=== PATIENT | male | born 1965 | race Caucasian/White ===

== ENCOUNTER 2019-11-30 08:13 | Outpatient (CLI) | payer OTHER, SELFPAY ==
--- NOTE | 2019-11-30 08:16 | ECG_ITS ---
Measurements Intervals [place] Rate: 73 P: 57 ND: 181 QRS: 23 QRSD: 111 T: 55 QT: 368 QTc: 408 Interpretive Statements SINUS RHYTHM INTRAVENTRICULAR CONDUCTION DELAY BASELINE ARTIFACT- I, II, III, AVR, AVF BORDERLINE ECG Electronically Signed On 11-30-2019 8:28:31 CDT by Glynn Gonzales D.O.
== END 2019-11-30 08:14 | disposition home or self-care (01) ==
PROVIDERS: PCP Internal Medicine; Visit Provider Orthopaedic Surgery
DX: I10 Essential (primary) hypertension (principal); I45.9 Conduction disorder, unspecified
CPT/HCPCS: 93005

== ENCOUNTER 2019-12-18 10:12 | Emergency (ER) | payer OTHER, SELFPAY ==
[2019-12-18] VITALS (21 sets, daily range): BP systolic 103–125; BP diastolic 70–107; PULSE 85–134; RESP 16–34; TEMP 37.2; O2SAT 97
--- NOTE | ~2019-12-18 | XR_ITS ---
XR chest 1V portable DATE: 12/18/2019 11:03 INDICATION: Fever and cough TECHNIQUE: Portable AP chest on 12/18/2019 at 1102 hours COMPARISON: 02/08/2014 PA and lateral chest 02/11/2014 CT thorax FINDINGS: Heart size is within normal limits. No hilar or mediastinal enlargement is evident. No pulmonary infiltrate or consolidation, pleural effusion or pulmonary vascular congestion or pneumo thorax. IMPRESSION: No active cardiopulmonary disease or significant change since 02/08/2014 Reviewed, dictated and finalized at location B. IMPRESSION: No active cardiopulmonary disease or significant change since 2013
--- NOTE | ~2019-12-18 | XR_ITS ---
EXAMINATION: XR knee LT 2V DATE: 12/18/2019 11:03 INDICATION: Swollen and painful left knee TECHNIQUE: Portable AP and flexed lateral views of the left knee were obtained. COMPARISON: 08/05/2015 FINDINGS: Left total knee arthroplasty with patellar resurfacing which appears well seated and in near anatomic alignment. No fracture. No cortical erosions or periosteal reaction. No periprosthetic lucency to yi ggest loosening or infection. Large left knee joint effusion and/or synovitis. Small enthesophytes al rahul the anterior patella. IMPRESSION: 1. Left total knee arthroplasty with no acute osseous abnormality. 2. Nonspecific moderate-sized left knee joint effusion and/or synovitis. Consider diagnostic arthroce ntesis. Reviewed, dictated and finalized at location A. IMPRESSION: 1. Left total knee arthroplasty with no acute osseous abnormality. 2. Nonspecific moderate-sized left knee joint effusion and/or synovitis. Consid er diagnostic arthrocentesis.
--- NOTE | 2019-12-18 10:25 | ED.GENADULT ---
HPI - General Adult General Chief complaint: Unspecified <Debby Franco MD - Last Filed: 12/18/19 19:01> Stated complaint: need tested for virus, and can't walk on my knee <Debby Franco MD - Last Filed: 12/18/19 19:01> Time Seen by Provider: 12/18/19 10:23 <Debby Franco MD - Last Filed: 12/18/19 19:01> History of Present Illness HPI narrative: Patient presents per private car for fever of 103, left knee pain, shortness of breath. His left knee pain started 4 days ago, without injury. He gives the pain scale 11 out of 10. He is unable to bear weight. His fever of 103 started 4 days ago. He also has a cough shortness of breath and wheezing. He has COPD. He said his sputum is yellow. He has not previously had pneumonia. His last knee surgery was done here. The physician of record is Dr. Kaplan. <Debby Franco MD - Last Filed: 12/18/19 19:01> Related Data Home medications: Home Medications Medication Instructions Recorded Confirmed albuterol sulfate 1 puff INHALATION DIRECTED PRN 11/22/19 11/22/19 albuterol sulfate 2.5 mg INHALATION DAILY 11/22/19 11/22/19 bupropion HCl 150 mg PO DAILY 11/22/19 11/22/19 ergocalciferol (vitamin D2) 50,000 unit PO WEEKLY 11/22/19 11/22/19 lisinopril 10 mg PO DAILY 11/22/19 11/22/19 montelukast 10 mg PO DAILY 11/22/19 11/22/19 sertraline 100 mg PO DAILY 11/22/19 11/22/19 <Debby Franco MD - Last Filed: 12/18/19 19:01> Allergies/adverse reactions: Allergies Allergy/AdvReac Type Severity Reaction Status Date / Time peanut Allergy Intermediate Difficulty Verified 12/18/19 10:27 Breathing [place] Allergy Intermediate SINUS Uncoded 12/18/19 10:27 PROBLEMS <Debby Franco MD - Last Filed: 12/18/19 19:01> Review of Systems Review of Systems: Narrative: CONSTITUTIONAL: He has fever, chills, and sweats. EYES: Denies visual changes, redness, or discharge. ENT: Denies rhinorrhea, congestion, sore throat, or otalgia. CARDIOVASCULAR: Denies chest pain, palpitations, or edema. RESPIRATORY: He has cough and dyspnea. GASTROINTESTINAL: Denies abdominal pain, nausea, vomiting, or diarrhea. GENITOURINARY: Denies dysuria or hematuria. SKIN: Denies rash or itching. MUSCULOSKELETAL: He has severe left knee pain with swelling. NEUROLOGIC: Denies headache, numbness, or weakness. PSYCHIATRIC: Denies anxiety or depression. <Debby Franco MD - Last Filed: 12/18/19 19:01> [facility] Surgical History Surgical History: Surgical History History of left knee surgery <Debby Franco MD - Last Filed: 12/18/19 19:01> Family History Family History: Family History (Updated 01/10/16 @ 23:21 by DOCTOR UNKNOWN) Mother Patient's mother is in good health Family history of lung cancer Father Patient's father is in good health Sibling Patient's brother is in good health Other Family history of arthritis Family history of malignant neoplasm Hypertension <Debby Franco MD - Last Filed: 12/18/19 19:01> Social History Social History: Social History Smoking status: Current every day smoker Alcohol intake: current <Debby Franco MD - Last Filed: 12/18/19 19:01> Exam Narrative: Exam Narrative: GENERAL: Well-appearing, well-nourished, and in moderate acute distress. HEAD: Normocephalic, atraumatic. EYES: PERRLA and EOMI. ENT: Nares clear, no rhinorrhea or epistaxis. Mucous membranes moist. NECK: Supple. CHEST: Clear to auscultation. No respiratory distress. HEART: Regular rate and rhythm. No murmur heard. Normal peripheral pulses. ABDOMEN: Soft, nontender, nondistended, normal active bowel sounds. EXTREMITIES: Left knee has a well-healed scar, swollen, red, tender. SKIN: Warm, dry, no rash. NEURO: No focal deficits. Alert and oriented x3. PSYCH: Normal mood and affect. <Debby Franco MD - Last Filed: 12/18/19 19
[2019-12-18 10:43] LABS: Basophils Percent Auto 0.3 % (0.2-1.2); Eosinophils Percent Auto 0.1 % (0-4.4); Hematocrit 39.5 % (42.0-52.0); Hemoglobin 13.7 g/dL (14.0-18.0); Immature Granulocyte Absolute 0.06 K/mm3 (0.00-0.031); Immature Granulocyte Percent A 0.5 % (0-0.5); Lymphocytes Absolute Auto 0.46 K/mm3 (0.9-3.2); Mean Corpuscular HGB Conc 34.7 g/dl (32-36); Mean Corpuscular Hemoglobin 30.9 pg (26-34); Mean Platelet Volume 10.4 fl (7.4-10.4); Monocytes Absolute Auto 0.9 K/mm3 (0.1-0.6); Monocytes Percent Auto 7.4 % (2.6-8.5); Neutrophils Percent Auto 87.7 % (45.5-73.1); Platelet Count Result 145 k/mm3 (150-375); Red Blood Count 4.44 M/mm3 (4.6-6.20); Red Cell Distribution Width 12.5 % (11.5-14.5); White Blood Count 11.4 K/mm3 (4.5-10.0)
--- NOTE | 2019-12-18 10:48 | ECG_ITS ---
Measurements Intervals [place] Rate: 127 P: 55 PA: 165 QRS: 21 QRSD: 107 T: 33 QT: 280 QTc: 408 Interpretive Statements SINUS TACHYCARDIA BASELINE WANDER- I, AVR, AVL, AVF ABNORMAL ECG Electronically Signed On 12-18-2019 11:19:11 CDT by Glynn Gonzales D.O.
[2019-12-18 10:54] LABS: Alanine Aminotransferase 24 U/L (4-50); Albumin Level 3.8 g/dL (3.5-5.1); Alkaline Phosphatase 110 U/L (38-126); Aspartate Amino Transferase 22 U/L (17-59); Bilirubin,Total 1.3 mg/dL (0.2-1.3); Blood Urea Nitrogen 21 mg/dL (9-20); Calcium 8.5 mg/dL (8.4-10.2); Carbon Dioxide 22 mmol/L (22-30); Chloride 96 mmol/L (98-107); Estimated CRCL calculation 64 ml/min; Estimated Glomerular Filt Rate > 60; Glucose 131 mg/dL (75-110); Potassium 3.8 mmol/L (3.4-5.0); Sodium 128 mmol/L (137-145)
[2019-12-18 10:55] LABS: Lactic Acid Reflex 1.4 mmol/L (0.7-2.1)
[2019-12-18] MEDS: MORPHINE SULFATE 4 MG/ML INJ IV PUSH (10:57)
[2019-12-18] MEDS: SODIUM CHLORIDE 0.9% IV 1,000 ML 200 ML IV CONT (10:57)
[2019-12-18 13:12] LABS: Add Urine Microscopic? YES; Appearance Urine Clear (Clear); Bacteria Urine Trace /hpf; Bilirubin Urine Negative (Negative); Blood Urine 1+ (Negative); Color Urine Amber (Yellow); Glucose Urine UA Negative (Negative); Hyaline Casts Urine 15-19 /lpf; Ketones Urine Negative (Negative); Leukocyte Esterase Ur Negative LEU/UL (Negative); Mucus Urine Moderate /lpf; Nitrate Urine Negative (Negative); Protein Urine 2+ mg/dL (Negative); Specific Grav Ur 1.025 (1.001-1.035); Squamous Epithelial Cell Urine Rare /hpf (Few)
[2019-12-18 13:44] LABS: Appearance Synovial Fluid Cloudy (Clear); Color Synovial Fluid Brown (Colorless); Lymphocytes Synovial Fluid 6 %; Monocytes Synovial Fluid 4 %; Neutrophils Synovial Fluid 90 % (0-25); RBC Synovial Fluid 0 /uL (0-0); Source Synovial Fluid Synovial fluid
[2019-12-18 13:52] LABS: Crystals Synovial Fluid Few Cppd (None Seen)
[2019-12-18 20:03] LABS: SARS-CoV-2 RNA PCR Negative
[2019-12-20 03:16] LABS: Glucose Synovial Fluid <10 mg/dL
== END 2019-12-18 19:35 | disposition short-term general hospital (02) ==
PROVIDERS: Emergency Medicine Emergency Medical Services; Emergency Provider Emergency Medicine; PCP Internal Medicine
DX: M25.462 Effusion, left knee (principal); R50.9 Fever, unspecified; E87.2 Acidosis; E87.1 Hypo-osmolality and hyponatremia; M00.9 Pyogenic arthritis, unspecified; J44.9 Chronic obstructive pulmonary disease, unspecified; D72.829 Elevated white blood cell count, unspecified; R00.0 Tachycardia, unspecified; Z20.828 Contact with and (suspected) exposure to other viral communicable diseases; Z96.652 Presence of left artificial knee joint; F17.200 Nicotine dependence, unspecified, uncomplicated
CPT/HCPCS: 20610; 36415; 71045; 73560; 80053; 81001; 82945; 83605; 84157; 85025; 87040; 87070; 87075; 87077; 87086; 87186; 87205; 87635; 88108; 89051; 89060; 93005; 96361; 96365; 96367; 96375; 99291; C9803; J2270; J2543; J3370; J7030; U0003

== ENCOUNTER 2020-01-14 10:17 | Emergency (ER) | payer OTHER, SELFPAY ==
--- NOTE | ~2020-01-14 | XR_ITS ---
EXAMINATION: XR chest 1V portable EXAM DATE: 01/14/2020 10:50 INDICATION: PICC line evaluation, clogged. TECHNIQUE: Portable AP frontal chest x-ray was obtained. Comparison is made to prior examination from 12/18/2019. FINDINGS: PICC line tip suspected to be identified, pointing toward the right lateral wall of the SVC at the brachiocephalic junction. If tip is against the wall, it may prevent aspiration, clinical cor relation. The lungs are clear. There are no pleural effusions. The cardiomediastinal silhouette is within nor mal limits. There is no pneumothorax suspected. The bones and soft tissues are unremarkable. IMPRESSION: PICC line tip overlying SVC but oriented horizontally, tip could be against the SVC wall. Reviewed, dictated and finalized at location A.
[2020-01-14 10:27] VITALS: BP 148/108; PULSE 109; RESP 18; TEMP 36.3; O2SAT 100
--- NOTE | 2020-01-14 11:08 | ED.GENADULT ---
HPI - General Adult General Chief complaint: Unspecified Stated complaint: clogged picc line Time Seen by Provider: 01/14/20 10:28 Source: patient Mode of arrival: ambulatory Limitations: no limitations History of Present Illness HPI narrative: Patient presents for evaluation of clogged PICC line which she has had for approximately 1 month to deliver himself ampicillin every 6 hours under the orders of Dr. Bryant and Dr. Kirby after having a left knee infection. Patient states that his knee has continued to improve and he denies any increase swelling erythema pain or fevers. Patient states that he last gave himself an administration of ampicillin is running at approximately 3am he states at that time he was able to get around to flush however prior to arrival he was not. Patient denies any other symptoms or concerns. Related Data Home Medications Medication Instructions Recorded Confirmed albuterol sulfate 1 puff INHALATION DIRECTED PRN 11/22/19 11/22/19 albuterol sulfate 2.5 mg INHALATION DAILY 11/22/19 11/22/19 bupropion HCl 150 mg PO DAILY 11/22/19 11/22/19 mirtazapine mg 01/14/20 pantoprazole PO 01/14/20 Allergies Allergy/AdvReac Type Severity Reaction Status Date / Time peanut Allergy Intermediate Difficulty Verified 01/14/20 10:30 Breathing [place] Allergy Intermediate SINUS Uncoded 01/14/20 10:30 PROBLEMS Review of Systems Review of Systems: Narrative: CONSTITUTIONAL: Denies fever, chills, or sweats. EYES: Denies visual changes, redness, or discharge. ENT: Denies rhinorrhea, congestion, sore throat, or otalgia. CARDIOVASCULAR: Denies chest pain, palpitations, or edema. RESPIRATORY: Denies cough or dyspnea. GASTROINTESTINAL: Denies abdominal pain, nausea, vomiting, or diarrhea. GENITOURINARY: Denies dysuria or hematuria. SKIN: Denies rash or itching. MUSCULOSKELETAL: Denies back pain, joint pain, or myalgia. NEUROLOGIC: Denies headache, numbness, dizziness, or weakness. PSYCHIATRIC: Denies anxiety or depression. [facility] Past Medical History Medical History (Updated 01/14/20 @ 11:38 by Sam Gillespie PA-C) Bipolar 1 disorder COPD (chronic obstructive pulmonary disease) Depression Infection of left knee Surgical History Surgical History History of left knee surgery Family History Family History (Updated 01/10/16 @ 23:21 by DOCTOR UNKNOWN) Mother Patient's mother is in good health Family history of lung cancer Father Patient's father is in good health Sibling Patient's brother is in good health Other Family history of arthritis Family history of malignant neoplasm Hypertension Social History Social History Smoking status: Current every day smoker Alcohol intake: current Exam Narrative: Exam Narrative: GENERAL: Well-appearing, well-nourished, and in no acute distress. HEAD: Normocephalic, atraumatic. EYES: PERRLA and EOMI. ENT: Nares clear, no rhinorrhea or epistaxis. Mucous membranes moist. Oropharynx without tonsillar hypertrophy exudate or other lesions. Bilateral TMs pearly nixon nonbulging NECK: Supple. No adenopathy or masses. CHEST: Clear to auscultation. No respiratory distress. No wheezes rales or rhonchi HEART: Regular rate and rhythm. Cap refill intact to extremities ABDOMEN: Soft, nontender, nondistended, normal active bowel sounds. EXTREMITIES: Normal range of motion. PICC line noted to left arm without signs of infection or erythema to the site. No external signs of blockage. Left knee larger than right with healed surgical scar noted. There is no erythema, heat, drainage from the site. There is no tenderness with palpation. SKIN: Warm, dry, no rash. NEURO: No focal deficits. Alert and oriented x3. PSYCH: Normal mood and affect. Course Vital Signs Vital signs: Vital Signs Temperature 97.3 F L 01/14/20 10:27 Pulse Rate 109 H
--- NOTE | 2020-01-14 11:21 | PC.NURSE ---
RN at bedside to attempt to unclog picc line per ERP orders. RN able to flush, get blood return and flush again with 20ml of ns.
[2020-01-14 11:52] VITALS: BP 102/63; PULSE 83; RESP 18; TEMP 36.6; O2SAT 98
== END 2020-01-14 11:54 | disposition home or self-care (01) ==
PROVIDERS: Emergency Provider Emergency Medicine; PCP Internal Medicine
DX: T82.898A Other specified complication of vascular prosthetic devices, implants and grafts, initial encounter (principal); M00.9 Pyogenic arthritis, unspecified; F31.9 Bipolar disorder, unspecified; J44.9 Chronic obstructive pulmonary disease, unspecified; F17.200 Nicotine dependence, unspecified, uncomplicated
CPT/HCPCS: 71045; 99283

== ENCOUNTER 2020-01-15 10:59 | Emergency (ER) | payer OTHER, SELFPAY ==
[2020-01-15 11:10] VITALS: BP 108/57; PULSE 100; RESP 18; TEMP 36.8; O2SAT 100
--- NOTE | 2020-01-15 12:04 | PC.NURSE ---
Pts PICC line flushed with normal saline and injection cap changed. Flushes easily but gives no blood return at this time.
[2020-01-15] MEDS: ALTEPLASE 2 MG VIAL (CATHFLO) IV PUSH (13:14)
--- NOTE | 2020-01-15 14:18 | ED.GENADULT ---
HPI - General Adult General Chief complaint: Unspecified Stated complaint: CLOGGED PICC LINE Time Seen by Provider: 01/15/20 11:15 Source: patient Mode of arrival: ambulatory Limitations: no limitations History of Present Illness HPI narrative: Patient presents for management of occluded PICC line. Patient was seen in the ER yesterday for occluded PICC line and it was able to be flushed and aspirated with a saline syringe. Patient states that he went to administer his ampicillin prior to arrival and noticed that he was unable to flush or aspirate the line. So he came to the emergency department. Patient denies any other symptoms or concerns. He has not contacted his PICC nurse. Patient uses a PICC line to administer ampicillin for prior left knee infection. Patient states that his left knee pain and symptoms have resolved and he is hoping to have the PICC line removed on Wednesday. Related Data Home Medications Medication Instructions Recorded Confirmed albuterol sulfate 1 puff INHALATION DIRECTED PRN 11/22/19 11/22/19 albuterol sulfate 2.5 mg INHALATION DAILY 11/22/19 11/22/19 bupropion HCl 150 mg PO DAILY 11/22/19 11/22/19 mirtazapine mg 01/14/20 pantoprazole PO 01/14/20 Allergies Allergy/AdvReac Type Severity Reaction Status Date / Time peanut Allergy Intermediate Difficulty Verified 01/14/20 10:30 Breathing [place] Allergy Intermediate SINUS Uncoded 01/14/20 10:30 PROBLEMS Review of Systems Review of Systems: Narrative: CONSTITUTIONAL: Denies fever, chills, or sweats. EYES: Denies visual changes, redness, or discharge. ENT: Denies rhinorrhea, congestion, sore throat, or otalgia. CARDIOVASCULAR: Denies chest pain, palpitations, or edema. RESPIRATORY: Denies cough or dyspnea. GASTROINTESTINAL: Denies abdominal pain, nausea, vomiting, or diarrhea. GENITOURINARY: Denies dysuria or hematuria. SKIN: Denies rash or itching. MUSCULOSKELETAL: Denies back pain, joint pain, or myalgia. NEUROLOGIC: Denies headache, numbness, dizziness, or weakness. PSYCHIATRIC: Denies anxiety or depression. [facility] Past Medical History Medical History (Updated 01/15/20 @ 13:23 by Sam Gillespie PA-C) Bipolar 1 disorder COPD (chronic obstructive pulmonary disease) Depression Infection of left knee Surgical History Surgical History History of left knee surgery Family History Family History (Updated 01/10/16 @ 23:21 by DOCTOR UNKNOWN) Mother Patient's mother is in good health Family history of lung cancer Father Patient's father is in good health Sibling Patient's brother is in good health Other Family history of arthritis Family history of malignant neoplasm Hypertension Social History Social History Smoking status: Current every day smoker Alcohol intake: current Exam Narrative: Exam Narrative: GENERAL: Well-appearing, well-nourished, and in no acute distress. HEAD: Normocephalic, atraumatic. EYES: PERRLA and EOMI. ENT: Nares clear, no rhinorrhea or epistaxis. Mucous membranes moist. Oropharynx without tonsillar hypertrophy exudate or other lesions. Bilateral TMs pearly nixon nonbulging NECK: Supple. No adenopathy or masses. CHEST: Clear to auscultation. No respiratory distress. No wheezes rales or rhonchi HEART: Regular rate and rhythm. . EXTREMITIES: Normal range of motion. No edema. Click noted to left arm. There are no signs of erythema infection or other obvious signs of inclusion at the site. SKIN: Warm, dry, no rash. NEURO: No focal deficits. Alert and oriented x3. PSYCH: Normal mood and affect. Course Vital Signs Vital signs: Vital Signs Temperature 98.2 F 01/15/20 11:10 Pulse Rate 100 01/15/20 11:10 Respiratory Rate 18 01/15/20 11:10 Blood Pressure 108/57 L 01/15/20 11:10 Pulse Oximetry 100 01/15/20 11:10 Temperature 98.2 F 01/15/20 14
--- NOTE | 2020-01-15 14:36 | PC.NURSE ---
cathlo withdrawn from line and successful blood return noted. Line flushed and locked with normal saline.
[2020-01-15 14:37] VITALS: BP 96/55; PULSE 74; RESP 16; TEMP 36.8; O2SAT 100
== END 2020-01-15 14:38 | disposition home or self-care (01) ==
PROVIDERS: Emergency Provider Emergency Medicine; PCP Internal Medicine
DX: T82.898A Other specified complication of vascular prosthetic devices, implants and grafts, initial encounter (principal); M00.9 Pyogenic arthritis, unspecified; F31.9 Bipolar disorder, unspecified; J44.9 Chronic obstructive pulmonary disease, unspecified; F17.200 Nicotine dependence, unspecified, uncomplicated
CPT/HCPCS: 96374; 99284; J2997

== ENCOUNTER 2020-09-06 09:04 | Outpatient (CLI) | payer OTHER, SELFPAY ==
--- NOTE | 2020-09-25 20:45 | WPDHOMESLEEP ---
Sleep Study - Home Unattended Date of Study: 09/06/20 Ordering Provider: Wojciech Hansen MD Interpreting Provider: Rula Valdivia MD Home Sleep Study Type: Apnea Link Air Height: 1.78 m Weight: 97.976 kg Body Mass Index: 30.9 Neck Circumference (inches): 17.25 [place]: 17 Reason for Sleep Study Hypersomnolence Sleep History Patrick Munson is a 55-year-old man with C COPD and poor sleep. He lost his daughter in March of 2019. He currently takes medicine to help get to sleep. He has difficulty falling asleep, he wakes up throughout the night and he has excessive daytime sleepiness. He occasionally snores and occasionally is loud enough that others complain about it. He occasionally awakens at night with heartburn, belching or coughing. He frequently awakens from sleep feeling short of breath. He frequently has trouble sleeping when he has a cold. He frequently gasps for breath at night. He constantly has breathing problems at night observed by others. He rarely sweats excessively at night. He occasionally notices his heart pounding or beating irregularly night. He frequently falls asleep during the day, occasionally involuntarily, rarely while driving. He does not have loss of muscle tone was strong emotion. He frequently has daytime difficulties due to his excessive sleepiness. He occasionally feels paralyzed on waking or falling asleep. He constantly has vivid dreamlike scenes upon awakening or falling asleep. He constantly feels afraid to go to sleep and he constantly has nightmares. He frequently remembers his dreams. He occasionally has racing thoughts. He always feel sad, depressed and anxious. He frequently has muscular tension and notices parts of his body jerking at night. He always kicks at night. He frequently has crawling and aching feelings in his legs and leg pain during. He rarely has morning jaw pain he occasionally grinds his teeth at night. He constantly is bothered by pain during the day, frequently is awakened by pain at night. He constantly wakes up feeling stiff in the morning frequently with sore achy muscles. He constantly wakes up with spine pain. He has fatigue, memory problems, concentration difficulties. He takes antacids regularly. Normal bedtime is between 10 and 11:00 p.m. taking anywhere between 2 and 5 hours to fall asleep. He typically wakes twice at night for 30 minutes to an hour. While awake he goes to urinate. He wakes the morning between 6 and 7:00 a.m.. We can schedule is the same. He is disabled. He takes naps. Short naps are not refreshing. He is drowsy in the morning for an hour. He feels better in the evening compared other times of day. Habits: Tobacco half pack per day. No caffeine, alcohol or recreational drugs. [facility] Past Medical History Medical History Bipolar 1 disorder COPD (chronic obstructive pulmonary disease) Depression Infection of left knee Surgical History Surgical History History of left knee surgery Family History Family History Mother Patient's mother is in good health Family history of lung cancer Father Patient's father is in good health Sibling Patient's brother is in good health Other Family history of arthritis Family history of malignant neoplasm Hypertension Social History Social History Smoking status: Current every day smoker Alcohol intake: current Medications Home Medications Medication Instructions Recorded Confirmed Type albuterol sulfate 1 puff INHALATION DIRECTED PRN 11/22/19 11/22/19 History albuterol sulfate 2.5 mg INHALATION DAILY 11/22/19 11/22/19 History bupropion HCl 150 mg PO DAILY 11/22/19 11/22/19 History mirtazapine mg 01/14/20 History pantoprazole PO 01/13
[2020-09-25 20:55] VITALS: BMI 30.9
== END 2020-09-06 09:05 | disposition home or self-care (01) ==
LOC: ANHCSM 09:04
PROVIDERS: PCP Internal Medicine; Visit Provider Internal Medicine Pulmonary Disease
DX: G47.10 Hypersomnia, unspecified (principal); G47.33 Obstructive sleep apnea (adult) (pediatric)
CPT/HCPCS: 95806

== ENCOUNTER 2020-10-28 11:59 | Emergency (ER) | payer OTHER, SELFPAY ==
--- NOTE | ~2020-10-28 | XR_ITS ---
EXAMINATION: XR elbow RT min 3V EXAM DATE: 10/28/2020 12:54 INDICATION: Pain R elbow for 5 months. No injury reported at this time. TECHNIQUE: Right elbow frontal, lateral with flexion, and oblique projections obtained and reviewed. There is no prior study for comparison. FINDINGS: Small ossification just lateral to the lateral epicondyles, could be sequela from old avuls ion injury, or less likely small joint body. This finding has been indicated, marked on the examinati on for review, clinical correlation. The joint spaces are uniform. No erosions or bony productive rey nges. No joint effusion. Small ossification along the olecranon, probably enthesopathy. There are no acute fractures identified. No radiopaque foreign bodies identified. IMPRESSION: Chronic findings as above. Reviewed, dictated and finalized at location A. IMPRESSION: Chronic findings as above.
[2020-10-28 12:01] VITALS: BP 129/70; PULSE 96; RESP 17; TEMP 36.4; O2SAT 97
--- NOTE | 2020-10-28 12:31 | ED.UPPEXIN ---
HPI - Extremity Injury (Upper) General Chief Complaint: Extremity Injury, Upper Stated Complaint: r elbow pain for 5 months Time Seen by Provider: 10/28/20 12:24 Source: RN notes reviewed History of Present Illness HPI narrative: Patient presents emergency room from home for right elbow pain. Patient states symptoms have been ongoing for the past 5 months since he had shoulder surgery states has been worse over the past week he denies any trauma or injury states pain is worse with full extension of the elbow the pain is located with point tenderness in the elbow he denies taking pain medication today denies any fevers or chills numbness or tingling in the extremities or any other symptoms Related Data Home Medications Medication Instructions Recorded Confirmed albuterol sulfate 1 puff INHALATION DIRECTED PRN 11/22/19 11/22/19 albuterol sulfate 2.5 mg INHALATION DAILY 11/22/19 11/22/19 bupropion HCl 150 mg PO DAILY 11/22/19 11/22/19 mirtazapine mg 01/14/20 pantoprazole PO 01/14/20 Allergies Allergy/AdvReac Type Severity Reaction Status Date / Time peanut Allergy Severe Difficulty Verified 10/28/20 12:36 Breathing [place] Allergy Intermediate SINUS Uncoded 10/28/20 12:04 PROBLEMS Review of Systems Review of Systems: Narrative: Gen.: Denies fevers or chills Musculoskeletal: See HPI Neuro: Denies numbness, tingling, weakness Skin: Denies rash Endo: Denies DM PMFSH Past Medical History Medical History Bipolar 1 disorder COPD (chronic obstructive pulmonary disease) Depression Infection of left knee Surgical History Surgical History History of left knee surgery Family History Family History Mother Patient's mother is in good health Family history of lung cancer Father Patient's father is in good health Sibling Patient's brother is in good health Other Family history of arthritis Family history of malignant neoplasm Hypertension Social History Social History Smoking status: Current every day smoker Alcohol intake: current Gender identity (if verbalized by the patient): Male Exam Narrative: Exam Narrative: APPEARANCE: No acute distress, nontoxic, resting in bed Eyes: EOMI HEENT: Normocephalic, atraumatic, RESPIRATORY: No respiratory distress MUSCULOSKELETAl: Tender to palpation over the right lateral epicondyle no tenderness over the medial epicondyle or the left and on process no swelling or ecchymosis no overlying erythema or swelling pain with full extension of the elbow no tenderness of the right shoulder or wrist radial pulse 2+ neurovascular intact NEURO: Awake and alert. Following commands, speech normal, no focal deficits SKIN:: Warm, dry. Normal Color no rash or lesions Course Course Emergency Course: Following x-ray suspect avulsion injury as the patient has no open wounds he is noted no trauma to the area patient has been followed by Dr. Jha for orthopedics for his shoulder in past and will follow Dr. Jha as outpatient Discussed with patient results of workup and diagnosis. Discussed need for follow-up with primary care, proper use of medication, and reasons to return to the emergency department. Patient understands and agrees to current treatment plan Vital Signs Vital signs: Vital Signs Temperature 97.5 F L 10/28/20 12:01 Pulse Rate 96 10/28/20 12:01 Respiratory Rate 17 10/28/20 12:01 Blood Pressure 129/70 10/28/20 12:01 Pulse Oximetry 97 10/28/20 12:01 Temperature 97.5 F L 10/28/20 12:01 Pulse Rate 96 10/28/20 12:01 Respiratory Rate 17 10/28/20 12:01 Blood Pressure 129/70 10/28/20 12:01 Pulse Oximetry 97 10/28/20 12:01 MDM - Extremity Injury (Upper) Imaging Data Radiologist's jadyn
[2020-10-28] MEDS: IBUPROFEN 600 MG TABLET PO (12:34)
[2020-10-28 13:26] VITALS: BP 132/78; PULSE 80; RESP 20; O2SAT 99
== END 2020-10-28 13:27 | disposition home or self-care (01) ==
PROVIDERS: Emergency Provider Emergency Medicine; PCP Internal Medicine
DX: G89.29 Other chronic pain (principal); M25.521 Pain in right elbow; F17.200 Nicotine dependence, unspecified, uncomplicated; J44.9 Chronic obstructive pulmonary disease, unspecified; F32.9 Major depressive disorder, single episode, unspecified
CPT/HCPCS: 73080; 99283; A9270

== ENCOUNTER 2020-11-01 16:28 | Inpatient (IN) | payer OTHER, SELFPAY ==
--- NOTE | ~2020-11-01 | XR_ITS ---
EXAMINATION: XR chest 1V portable INDICATION: Cough, shortness of breath, and fever TECHNIQUE: Portable AP chest at 1903 hours COMPARISON: 01/14/2020 FINDINGS: There are patchy airspace opacities throughout all lung zones superimposed on chronic retic ular opacities. There is no pleural effusion or pneumothorax. The cardiomediastinal silhouette is nor mal. Suture anchors are noted in the left humeral head. IMPRESSION: 1. Patchy airspace opacities superimposed on a background of chronic lung disease, consistent with pn eumonia versus atelectasis versus pulmonary edema. Reviewed, dictated and finalized at location A. IMPRESSION: 1. Patchy airspace opacities superimposed on a background of chronic lung disea se, consistent with pneumonia versus atelectasis versus pulmonary edema.
[2020-11-01 17:07] VITALS: BP 136/73; PULSE 131; RESP 18; TEMP 38.1; O2SAT 95
[2020-11-01 18:51] VITALS: BP 118/54; PULSE 128; RESP 20; O2SAT 93
[2020-11-01 19:01] LABS: Basophils Absolute Auto 0.1 K/mm3 (0.0-0.1); Basophils Percent Auto 0.5 % (0.2-1.2); Eosinophils Absolute Auto 0.1 K/mm3 (0-0.3); Eosinophils Percent Auto 0.3 % (0-4.4); Hematocrit 43.7 % (42.0-52.0); Hemoglobin 14.4 g/dL (14.0-18.0); Immature Granulocyte Absolute 0.17 K/mm3 (0.00-0.031); Immature Granulocyte Percent A 0.8 % (0-0.5); Lymphocytes Absolute Auto 1.15 K/mm3 (0.9-3.2); Lymphocytes Percent Auto 5.2 % (18.3-44.2); Mean Corpuscular Hemoglobin 30.1 pg (26-34); Mean Corpuscular Volume 91.2 fl (80-100); Monocytes Absolute Auto 1.3 K/mm3 (0.1-0.6); Monocytes Percent Auto 6.1 % (2.6-8.5); Neutrophils Absolute Auto 19.1 K/mm3 (1.3-6.7); Neutrophils Percent Auto 87.1 % (45.5-73.1); Platelet Count Result 258 k/mm3 (150-375); Red Blood Count 4.79 M/mm3 (4.6-6.20); Red Cell Distribution Width 13.2 % (11.5-14.5); White Blood Count 21.9 K/mm3 (4.5-10.0)
[2020-11-01] MEDS: LACTATED RINGERS 1,000 ML 999 ML IV CONT ×3 (19:05→20:54)
[2020-11-01 19:17] LABS: Alanine Aminotransferase 20 U/L (4-50); Albumin Level 4.1 g/dL (3.5-5.1); Alkaline Phosphatase 85 U/L (38-126); Anion Gap 9 mmol/L (8-16); Aspartate Amino Transferase 26 U/L (17-59); Bilirubin,Total 0.4 mg/dL (0.2-1.3); Blood Urea Nitrogen 24 mg/dL (9-20); Calcium 10.1 mg/dL (8.4-10.2); Carbon Dioxide 26 mmol/L (22-30); Chloride 99 mmol/L (98-107); Estimated CRCL calculation 72 ml/min; Estimated Glomerular Filt Rate > 60; Glucose 103 mg/dL (75-110); Potassium 3.4 mmol/L (3.4-5.0); Sodium 134 mmol/L (137-145)
[2020-11-01 19:26] LABS: Add Urine Microscopic? YES; Appearance Urine Clear (Clear); Bilirubin Urine Negative (Negative); Blood Urine 1+ (Negative); Color Urine Yellow (Yellow); Glucose Urine UA Negative (Negative); Ketones Urine Negative (Negative); Leukocyte Esterase Ur Negative LEU/UL (Negative); Mucus Urine Rare /lpf; Nitrate Urine Negative (Negative); Protein Urine 2+ mg/dL (Negative); RBC Urine 0-2 /hpf (0-2); Specific Grav Ur 1.024 (1.001-1.035); Squamous Epithelial Cell Urine Rare /hpf (Few); WBC Urine 0-3 /hpf
--- NOTE | 2020-11-01 20:23 | ED.URI ---
HPI - URI/Sore Throat General Chief Complaint: Upper Respiratory Infection Stated Complaint: fever since yesterday Time Seen by Provider: 11/01/20 18:05 Source: patient Mode of arrival: ambulatory Limitations: no limitations History of Present Illness HPI Narrative: 55-year-old male History of COPD Has been twice vaccinated for Covid Complains of a 2-day history of fever, nonproductive cough, chills Patient tells me that last time he had a fever this high he had a knee joint infection however right now he does not have any pain or effusions in any of his joints Related Data Home Medications Medication Instructions Recorded Confirmed albuterol sulfate 1 puff INHALATION DIRECTED PRN 11/22/19 11/22/19 albuterol sulfate 2.5 mg INHALATION DAILY 11/22/19 11/22/19 bupropion HCl 150 mg PO DAILY 11/22/19 11/22/19 mirtazapine mg 01/14/20 pantoprazole PO 01/14/20 Allergies Allergy/AdvReac Type Severity Reaction Status Date / Time peanut Allergy Severe Difficulty Verified 11/01/20 18:03 Breathing [place] Allergy Intermediate SINUS Uncoded 11/01/20 18:03 PROBLEMS Review of Systems Review of Systems: All systems reviewed & are unremarkable except as noted in HPI and below Constitutional: Constitutional: Reports chills, Reports fatigue, Reports fever(s), Denies headache(s) and Reports weakness Eyes: Eyes: Reports no additional eye complaints and Denies change in vision ENT: Denies headache(s) and Denies sore throat Cardiovascular: Cardiovascular: Denies chest pain and Denies dyspnea Respiratory: Respiratory: Reports cough and Reports dyspnea Gastrointestinal: Gastrointestinal: Denies abdominal pain, Denies diarrhea, Reports nausea and Denies vomiting Genitourinary: Genitourinary: Denies dysuria and Denies urinary frequency Musculoskeletal: Musculoskeletal: Reports myalgias, Denies deformity, Denies arthralgias, Denies joint swelling and Denies numbness Integumentary/Breasts: Skin/Breast: Denies rash and Denies wounds Neurologic: Denies headache(s), Denies focal weakness and Denies numbness Psychiatric: Psychiatric: Reports no additional psychiatric complaints Endocrine: Endocrine: Reports no additional endocrine complaints and Reports fatigue Hematologic/Lymphatic: Hematologic/Lymphatic: Reports no additional hematologic/lymphatic complaints Allergic/Immunologic: Allergic/Immunologic: Reports no additional allergic/immunologic complaints [facility] Past Medical History Medical History Bipolar 1 disorder COPD (chronic obstructive pulmonary disease) Depression Infection of left knee Surgical History Surgical History History of left knee surgery Family History Family History Mother Patient's mother is in good health Family history of lung cancer Father Patient's father is in good health Sibling Patient's brother is in good health Other Family history of arthritis Family history of malignant neoplasm Hypertension Social History Social History Smoking status: Current every day smoker Alcohol intake: current Gender identity (if verbalized by the patient): Male Exam Const: General: cooperative, alert and ill appearing Orientation/consciousness: patient oriented x3 (alert) HENMT: Head: normal to inspection, normocephalic and atraumatic Ears: external ears normal General nose exam: no epistaxis Mouth: Yes Normal oral and palatal mucosa present Eyes: Conjunctivae: conjunctivae normal EOM: EOMs intact bilaterally Neck: Neck: normal visual inspection, supple and no JVD Resp: Effort & Inspection: normal respiratory effort and tachypneic Auscultation: crackles, no wheezes and other (BS =) Cardio: Rate: regular rate and tachycardic
[2020-11-01 20:44] VITALS: BP 134/75; PULSE 119; RESP 22; O2SAT 98
[2020-11-01] MEDS: ALBUTEROL SULFATE (*SP) AEROSOL 1 PUFF 4 PUFF INHALATION (20:57)
[2020-11-01 21:04] VITALS: PULSE 124; RESP 22
[2020-11-01 22:46] VITALS: BP 147/77; PULSE 112; RESP 24; O2SAT 95
--- NOTE | 2020-11-01 23:28 | ECG_ITS ---
Measurements Intervals [place] Rate: 118 P: 44 FL: 128 QRS: 12 QRSD: 103 T: 50 QT: 301 QTc: 423 Interpretive Statements SINUS TACHYCARDIA POSSIBLE LEFT ATRIAL ENLARGEMENT ABNORMAL ECG Electronically Signed On 11-02-2020 5:47:12 CDT by Glynn Gonzales D.O.
--- NOTE | 2020-11-01 23:50 | PM.IMHP ---
H&P: HPI History of Present Illness Date/Time: 11/01/20 23:20 Chief Complaint: Fever, cough Narrative: 55-year-old male with past medical history of COPD and continued tobacco use who presented to the ER with 2 days of fever cough and shortness of breath. Patient reports that his fever at home was greater than 102. His associated with chills, cough productive of yellow sputum, anorexia, and nausea and vomiting. His shortness of breath is not improved despite using his p.r.n. albuterol inhaler at home. He has been taking ibuprofen at home to help with the fever. Despite taking 600 mg of ibuprofen at home his temperature was still 100.6? when he arrived to the ER. He reports that he received both doses of the COVID-19 vaccine and. His 2nd vaccine was a little over a month ago. He denies any recent ill contacts. He lives with 2 friends to do not have any upper respiratory symptoms. He reports that his cough is productive of yellow sputum. He denies any lower extremity swelling, paroxysmal nocturnal dyspnea or orthopnea. He did have some nausea and vomiting when he arrived to the ER. However since that time he has been able to eat a sandwich without any further nausea or vomiting. He denies any chest pain. He has had a mild generalized headache. He has not had any loss of sense of taste or smell. He has noticed some discomfort in his left posterior ribs with inspiration and coughing. The patient reports that he has been on steroids for 2 days for tenosynovitis of his right elbow. He is supposed to be taking 20 mg of prednisone 3 times a day as for the next couple of days and then be titrating his dose down. Despite being on the steroids for the tenosynovitis he has had increased wheezing. He has tried using his nebulizer machine. Review of Systems Review of Systems: Narrative: 12 systems were reviewed with pertinent positives and negatives per HPI. Except as documented in the HPI, all other systems were reviewed and are negative. [facility] Past Medical History Medical History (Updated 11/02/20 @ 03:24 by Sachi Grove DO) Bipolar 1 disorder Continuous tobacco abuse COPD (chronic obstructive pulmonary disease) Depression Esophageal dilatation X4 most recent was performed at [facility] in [place] GERD (gastroesophageal reflux disease) Hyperlipidemia Infection of left knee Obstructive sleep apnea on CPAP (09/25/20) Surgical History Surgical History (Updated 11/02/20 @ 03:08 by Sachi Grove DO) H/O left wrist surgery H/O right wrist surgery History of arthroscopic surgery of shoulder (~05/2020) History of esophagogastroduodenoscopy (EGD) (~2019) History of left knee replacement Initial left knee replacement in 2018 he had subsequent infection of the knee replacement and had to have repeat knee replacement in 2020 History of partial thyroidectomy (10/2014) Left thyroidectomy due to multinodular goiter History of repair of anterior cruciate ligament of right knee History of tonsillectomy Status post open reduction with internal fixation of fracture Left ankle Family History Family History (Updated 11/02/20 @ 03:09 by Sachi Grove DO) Mother Lung cancer Father Heart attack Sibling Patient's brother is in good health Other Family history of malignant neoplasm Social History Social History (Updated 11/02/20 @ 03:14 by Sachi Grove DO) Social History: He is and lives with a couple of friends. He had 1 daughter who of a fentanyl overdose in 2019. He has smoked up to a pack of cigarettes per day since he was 14 years old. He is currently smoking about 5-6 cigarettes per day. He used to drink alcohol heavily and was drinking up to 3/5 of hard liquor a day on and off for 20 years. He quit drinking alcohol in 2019. He uses marijuana on occasion. 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
[2020-11-02 00:56] VITALS: BP 114/67; PULSE 109; RESP 24; TEMP 36.1; O2SAT 95; BMI 32.7
--- NOTE | 2020-11-02 01:14 | ADMGEN ---
This patient, Patirck Munson, was admitted to [facility] Surg Room 304-02. Patient/family oriented to hospital policies and general routines including ID bracelet, bed and alarms, visiting hours, pain management, procedures, bathroom and other care routines, personal items, smoking policy, room service/diet, and visiting hours. Information on how to activate the Rapid Response Team has been discussed. Patient/Family are encouraged to report perceived risks to care and to ask questions if they do not understand what they are told or what they should do.
[2020-11-02] MEDS: LACTATED RINGERS 1,000 ML 125 ML IV CONT (01:24)
[2020-11-02 03:00] VITALS: PULSE 88; O2SAT 93
[2020-11-02 04:00] VITALS: BP 103/57; PULSE 84; PULSE 89; RESP 20; TEMP 36.4; O2SAT 96
--- NOTE | 2020-11-02 04:20 | ECG_ITS ---
Measurements Intervals [place] Rate: 84 P: 59 MD: 184 QRS: 16 QRSD: 117 T: 63 QT: 368 QTc: 435 Interpretive Statements SINUS RHYTHM INTRAVENTRICULAR CONDUCTION DELAY BASELINE ARTIFACT- I, II, III, V1-V2, V4, V6 BORDERLINE ECG Electronically Signed On 11-02-2020 5:54:12 CDT by Glynn Gonzales D.O.
[2020-11-02 04:42] VITALS: O2SAT 94
[2020-11-02 08:00] VITALS: BP 109/69; PULSE 81; PULSE 82; PULSE 84; RESP 20; TEMP 35.6; O2SAT 98
[2020-11-02 08:28] LABS: Hematocrit 38.8 % (42.0-52.0); Hemoglobin 12.7 g/dL (14.0-18.0); Mean Corpuscular HGB Conc 32.7 g/dl (32-36); Mean Corpuscular Hemoglobin 29.8 pg (26-34); Mean Corpuscular Volume 91.1 fl (80-100); Mean Platelet Volume 9.7 fl (7.4-10.4); Platelet Count Result 227 k/mm3 (150-375); Red Blood Count 4.26 M/mm3 (4.6-6.20); Red Cell Distribution Width 13.1 % (11.5-14.5); White Blood Count 19.6 K/mm3 (4.5-10.0)
[2020-11-02 08:38] LABS: Anion Gap 3 mmol/L (8-16); Blood Urea Nitrogen 18 mg/dL (9-20); Calcium 8.9 mg/dL (8.4-10.2); Carbon Dioxide 28 mmol/L (22-30); Chloride 103 mmol/L (98-107); Estimated CRCL calculation 97 ml/min; Estimated Glomerular Filt Rate > 60; Glucose 151 mg/dL (75-110); Potassium 4.3 mmol/L (3.4-5.0); Sodium 134 mmol/L (137-145)
[2020-11-02] MEDS: buPROPion HCL XL (24 HR) 150 MG TABCR 300 MG PO (09:19)
[2020-11-02] MEDS: MONTELUKAST SODIUM 10 MG TABLET PO (09:19)
[2020-11-02] MEDS: PANTOPRAZOLE 40 MG TABLET PO (09:19)
[2020-11-02] MEDS: ATORVASTATIN 40 MG TABLET PO (09:19)
[2020-11-02] MEDS: MIRTAZAPINE 15 MG TABLET PO (09:19)
[2020-11-02] MEDS: ENOXAPARIN 40 MG/0.4 ML SYRINGE SUB-Q (09:20)
[2020-11-02 10:02] LABS: Basophils Absolute Auto 0.1 K/mm3 (0.0-0.1); Basophils Percent Auto 0.4 % (0.2-1.2); Eosinophils Percent Auto 0.1 % (0-4.4); Immature Granulocyte Percent A 0.5 % (0-0.5); Lymphocytes Absolute Auto 1.01 K/mm3 (0.9-3.2); Lymphocytes Percent Auto 5.2 % (18.3-44.2); Monocytes Absolute Auto 1.1 K/mm3 (0.1-0.6); Monocytes Percent Auto 5.6 % (2.6-8.5); Neutrophils Absolute Auto 17.3 K/mm3 (1.3-6.7); Neutrophils Percent Auto 88.2 % (45.5-73.1)
[2020-11-02 10:38] LABS: Magnesium 2.3 mg/dL (1.6-2.3)
[2020-11-02 12:00] VITALS: BP 106/52; PULSE 79; PULSE 95; RESP 18; TEMP 36.5; O2SAT 96
--- NOTE | 2020-11-02 12:03 | PM.DS ---
DS: Admitting Diagnosis Admitting Diagnosis Admitting Diagnosis: Pneumonia DS: Discharge Diagnosis Discharge Diagnosis (1) Pneumonia: Qualifiers: Laterality: bilateral Lung location: unspecified part of lung Pneumonia type: due to unspecified organism Qualified Code(s): J18.9 - Pneumonia, unspecified organism Code(s): J18.9 - Pneumonia, unspecified organism Status: Acute Assessment and Plan: Date of Admission 11/01/20 Date of Discharge 11/02/20 Mr. Munson is a 55yo M with history of COPD, obstructive sleep apnea, and continuous tobacco presented to the ED for evaluation of fever, chills, body aches, weakness and shortness of breath. COVID-19 negative by PCR 11/01/2020. Chest x-ray demonstrated patchy airspace opacities superimposed on a background of chronic lung disease, consistent with pneumonia vs. atelectasis vs. pulmonary edema. Patient was admitted to the hospitalist service for management of pneumonia. He was started on IV antibiotic therapy with azithromycin and Rocephin. He was also treated with IV Solu-Medrol and transitioned to oral prednisone since he was wheezing. Patient was feeling much better the following day and his shortness of breath was improved. He improved quicker than expected and was hemodynamically stable for discharge home on 11/02/2020. Pneumococcal urine antigen is positive. He was discharged with oral Augmentin to complete the course and encouraged to follow-up with his primary care provider in 1-2 weeks. (2) Sepsis: Qualifiers: Sepsis acute organ dysfunction status: without acute organ dysfunction Sepsis type: sepsis due to unspecified organism Qualified Code(s): A41.9 - Sepsis, unspecified organism Code(s): A41.9 - Sepsis, unspecified organism Status: Acute Assessment and Plan: Evident on arrival by leukocytosis and fever, improved prior to discharge. Blood cultures are negative. Suspected source is pneumococcal pneumonia, continue antibiotic therapy as outlined above. (3) COPD with lower respiratory infection: Code(s): J44.0 - Chronic obstructive pulmonary disease with (acute) lower respiratory infection Status: Chronic Assessment and Plan: Discharged with oral prednisone, albuterol. Continue with montelukast. (4) Obstructive sleep apnea: Code(s): G47.33 - Obstructive sleep apnea (adult) (pediatric) Status: Chronic Assessment and Plan: CPAP. (5) Continuous tobacco abuse: Code(s): Z72.0 - Tobacco use Status: Chronic Assessment and Plan: He was educated on the importance of smoking cessation. DS: Summary Hospital Course Hospital Course: See above Time Spent with Patient Time attestation: Total time spent providing and/or coordinating discharge services: 35 minutes. Exam Narrative: Exam Narrative: General: Male resting comfortably sitting up in bed in no acute distress. HEENT: Normocephalic, EOMI, oral mucosa moist. Cardiovascular: Rate and rhythm are regular. Respiratory: Faint bibasilar rhonchi. Respirations even and non-labored. Tolerating room air. Speaking in full sentences without respiratory distress. Abdomen: Soft, non-tender, non-distended, bowel sounds present. Extremities: Peripheral pulses intact. No edema or pain to palpation. Neuro: No focal neurological deficits. Speech is clear. DS: Data Data Completed and Pending Labs on day of discharge: Last Vital Signs Temp 97.7 F 11/02/20 12:00 Pulse 95 11/02/20 12:00 Resp 18 11/02/20 12:00 BP 106/52 L 11/02/20 12:00 Pulse Ox 96 11/02/20 12:00 ITS Impressions Chest X-Ray 11/01/20 19:04 IMPRESSION: 1. Patchy airspace opacities superimposed on a backgroun
[2020-11-02] MEDS: predniSONE 20 MG TABLET 40 MG PO (13:07)
[2020-11-02 19:55] LABS: SARS-CoV-2 RNA PCR Negative
[2020-11-05 18:56] LABS: Pneumococcal Antigen Urine Detected (Not Detected)
[2020-11-06 12:55] LABS: Mycoplasma IgM Antibody Titer 162 U/mL (<770)
[2020-11-06 17:41] LABS: Legionella pneumophila Ag Ur Not Detected (Not Detected)
== END 2020-11-02 15:26 | disposition home or self-care (01) | DRG 720 ==
LOC: ANHED 20:38 → ANH3MEDSUR 11-02 02:31
PROVIDERS: Admitting Provider Internal Medicine; Emergency Provider Emergency Medicine; PCP Internal Medicine; Visit Provider Physician Assistant
DX: A41.9 Sepsis, unspecified organism (principal); J13 Pneumonia due to Streptococcus pneumoniae; J44.0 Chronic obstructive pulmonary disease with (acute) lower respiratory infection; Z20.822 Contact with and (suspected) exposure to COVID-19; G47.33 Obstructive sleep apnea (adult) (pediatric); F31.9 Bipolar disorder, unspecified; F17.210 Nicotine dependence, cigarettes, uncomplicated
CPT/HCPCS: 36415; 71045; 80048; 80053; 81001; 83605; 83735; 85025; 85027; 86738; 87040; 87449; 87899; 93005; 94640; 96360; 99285; A9270; C9803; J0456; J0696; J1100; J1650; J7120; J7512; U0003; U0005

== ENCOUNTER 2021-01-26 13:52 | Emergency (ER) | payer OTHER, SELFPAY ==
--- NOTE | ~2021-01-26 | XR_ITS ---
EXAMINATION: XR chest 2V DATE: 01/26/2021 14:02 INDICATION: Chest pain TECHNIQUE: Frontal and lateral views of the chest are obtained COMPARISON: 11/01/2020 FINDINGS: There are minimal chronic opacities of the lung bases, consistent with atelectasis or scarr ing. No acute airspace opacities are identified. There is no pleural effusion or pneumothorax. The ca rdiomediastinal silhouette is normal. There is mild thoracic spondylosis. Suture anchors are noted in the left humeral head. IMPRESSION: 1. Mild atelectasis or scarring of the lung bases. Reviewed, dictated and finalized at location A.
--- NOTE | 2021-01-26 13:53 | ECG_ITS ---
Measurements Intervals [place] Rate: 91 P: 60 [place]: 179 QRS: 5 QRSD: 113 T: 58 QT: 362 QTc: 447 Interpretive Statements SINUS RHYTHM INTRAVENTRICULAR CONDUCTION DELAY BASELINE ARTIFACT- I, III, AVR, AVL, V1 BORDERLINE ECG Electronically Signed On 01-26-2021 17:41:21 CDT by Glynn Gonzales D.O.
[2021-01-26 14:03] VITALS: BP 141/59; PULSE 95; RESP 20; TEMP 36.2; O2SAT 96
[2021-01-26 14:38] LABS: Basophils Absolute Auto 0.2 K/mm3 (0.0-0.1); Basophils Percent Auto 1.4 % (0.2-1.2); Eosinophils Absolute Auto 0.6 K/mm3 (0-0.3); Eosinophils Percent Auto 5.4 % (0-4.4); Hematocrit 42.7 % (42.0-52.0); Hemoglobin 14.5 g/dL (14.0-18.0); Immature Granulocyte Absolute 0.06 K/mm3 (0.00-0.031); Immature Granulocyte Percent A 0.6 % (0-0.5); Lymphocytes Absolute Auto 2.25 K/mm3 (0.9-3.2); Lymphocytes Percent Auto 20.6 % (18.3-44.2); Mean Corpuscular Hemoglobin 29.7 pg (26-34); Mean Corpuscular Volume 87.3 fl (80-100); Mean Platelet Volume 9.9 fl (7.4-10.4); Monocytes Absolute Auto 0.7 K/mm3 (0.1-0.6); Monocytes Percent Auto 6.2 % (2.6-8.5); Neutrophils Absolute Auto 7.2 K/mm3 (1.3-6.7); Neutrophils Percent Auto 65.8 % (45.5-73.1); Platelet Count Result 253 k/mm3 (150-375); Red Blood Count 4.89 M/mm3 (4.6-6.20); Red Cell Distribution Width 13.7 % (11.5-14.5); White Blood Count 10.9 K/mm3 (4.5-10.0)
[2021-01-26 14:46] LABS: Anion Gap 2 mmol/L (8-16); Blood Urea Nitrogen 19 mg/dL (9-20); Carbon Dioxide 26 mmol/L (22-30); Chloride 105 mmol/L (98-107); Estimated CRCL calculation 108 ml/min; Estimated Glomerular Filt Rate > 60; Glucose 112 mg/dL (65-110); INR 0.9; Potassium 3.5 mmol/L (3.4-5.0); Prothrombin Time 12.3 Seconds (11.1-14.7); Sodium 133 mmol/L (137-145)
[2021-01-26 14:47] LABS: Partial Thromboplastin Time 31.3 SECONDS (22.3-36.8)
[2021-01-26 14:59] LABS: Troponin I < 0.012 ng/mL (0.000-0.034)
[2021-01-26 16:46] VITALS: BP 126/63; PULSE 81; RESP 18; TEMP 36.3; O2SAT 100
[2021-01-26 17:37] LABS: Troponin I < 0.012 ng/mL (0.000-0.034)
--- NOTE | 2021-01-26 19:40 | PC.NURSE ---
called for the pt for 6 hr vital signs. pt not in lobby or outside
== END 2021-01-26 19:40 | disposition left against medical advice (07) ==
PROVIDERS: Emergency Provider Emergency Medicine
DX: Z53.21 Procedure and treatment not carried out due to patient leaving prior to being seen by health care provider (principal); R07.9 Chest pain, unspecified
CPT/HCPCS: 36415; 71046; 80048; 84484; 85025; 85610; 85730; 93005; 99199

== ENCOUNTER 2021-01-29 00:29 | Day surgery (SDC) | payer OTHER, SELFPAY ==
[2021-01-24 15:39] VITALS: BMI 32.4
--- NOTE | 2021-01-27 14:36 | PM.IMHP ---
H&P: HPI History of Present Illness Date/Time: 01/27/21 14:36 The patient is a 55-year-old male who presents with right elbow pain over the lateral epicondylar region. This is chronic in nature. He denies any specific trauma or injury. His aching pain with gripping or grasping particular he tries to lift anything heavy or extend his wrist against resistance. This been going on for 8-9 months. He has pain worse with activity somewhat relieved by rest. He has tried cortisone bracing anti-inflammatories ice and activity modification without significant relief. He denies any weakness no numbness or tingling. Despite conservative measures symptoms continue. X-rays were unremarkable. 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 Jha he would now like to proceed with surgical release and debridement of the lateral condyle of the right elbow. Chief Complaint: Right elbow pain lateral epicondyle due to lateral epicondylitis chronic in nature. Review of Systems Review of Systems: All systems reviewed & are unremarkable except as noted in HPI and below PMFSH Past Medical History Medical History Bipolar 1 disorder Continuous tobacco abuse COPD (chronic obstructive pulmonary disease) Depression Esophageal dilatation X4 most recent was performed at hospital in [place] GERD (gastroesophageal reflux disease) Hyperlipidemia Infection of left knee Obstructive sleep apnea on CPAP (09/25/20) Surgical History Surgical History H/O left wrist surgery H/O right wrist surgery History of arthroscopic surgery of shoulder (~05/2020) History of esophagogastroduodenoscopy (EGD) (~2019) History of left knee replacement Initial left knee replacement in 2018 he had subsequent infection of the knee replacement and had to have repeat knee replacement in 2020 History of partial thyroidectomy (10/2014) Left thyroidectomy due to multinodular goiter History of repair of anterior cruciate ligament of right knee History of tonsillectomy Status post open reduction with internal fixation of fracture Left ankle Family History Family History Mother Lung cancer Father Heart attack Sibling Patient's brother is in good health Other Family history of malignant neoplasm Social History Social History Social History: He is and lives with a couple of friends. He had 1 daughter who of a fentanyl overdose in 2019. He has smoked up to a pack of cigarettes per day since he was 14 years old. He is currently smoking about 5-6 cigarettes per day. He used to drink alcohol heavily and was drinking up to 3/5 of hard liquor a day on and off for 20 years. He quit drinking alcohol in 2019. He uses marijuana on occasion. 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 However, he is now on disability. Primary care physician: Dr. Gerald Abel Code status: Full code Surrogate decision maker: Father Smoking packs per day: 1 Smoking cigarettes per day: 20.0 Years smoked: 25 Smoking pack-years: 25.00 Smoking status: Current every day smoker Tobacco type: cigarettes Alcohol intake: former Substance use: current Substance use type: marijuana Gender identity (if verbalized by the patient): Male Spiritual care concerns: No Meds Home Medications and Allergies Home Medications Medication Instructions Recorded Confirmed Type albuterol sulfate 1 puff INHALATION TID PRN 11/22/19 01/24/21 History bupropion HCl 150 mg PO DAILY 11/22/19 01/24/21 History pantoprazole 40 mg PO DAILY
--- NOTE | 2021-01-28 13:01 | WPDANESEPPF ---
Anes - Initial Pre Proc Eval Procedure: Operation Date: 01/29/21 09:30 Proposed Procedures p Debridement Epicondyle Extensor Carpi Radialis Brevis, Right Elbow - Alex Jha MD Date/Time: 01/28/21 13:01 Surgeon: Alex Jha MD Pre Op Diagnosis: right lateral elbow epicondylitis Patient Data Age: 55 Gender: M Height: 1.78 m Weight: 102.51 kg Allergies Allergy/AdvReac Type Severity Reaction Status Date / Time peanut Allergy Severe Difficulty Verified 01/24/21 15:58 Breathing [place] Allergy Intermediate SINUS Uncoded 01/07/21 13:59 PROBLEMS Home Medications Medication Instructions Recorded Confirmed Type albuterol sulfate 1 puff INHALATION TID PRN 11/22/19 01/24/21 History bupropion HCl 150 mg PO DAILY 11/22/19 01/24/21 History pantoprazole 40 mg PO DAILY 01/14/20 01/24/21 History albuterol sulfate 2.5 mg INHALATION Q4-6H PRN #90 ml 11/02/20 01/24/21 Rx atorvastatin 40 mg PO DAILY 11/02/20 01/24/21 History montelukast 10 mg PO DAILY 11/02/20 01/24/21 History prazosin 5 mg PO HS 11/02/20 01/24/21 History risperidone 2 mg PO HS 11/02/20 01/24/21 History amitriptyline 50 mg PO DAILY 01/24/21 01/24/21 History ECG: Date of Service: 01/26/21 Procedure(s): CA 12 lead EKG Accession Number(s): [id number] cc: ~ Measurements Intervals [place] Rate: 91 P: 60 [place]: 179 QRS: 5 QRSD: 113 T: 58 QT: 362 QTc: 447 Interpretive Statements SINUS RHYTHM INTRAVENTRICULAR CONDUCTION DELAY BASELINE ARTIFACT- I, III, AVR, AVL, V1 BORDERLINE ECG Electronically Signed On 01-26-2021 17:41:21 CDT by Glynn Gonzales D.O. Dictated By: Glynn Gonzales DO 01/26/21 [id number] Patient hx anesthesia problems: none Family hx anesthesia problems: none PMFSH Past Medical History Medical History (Updated 01/28/21 @ 13:03 by José Love MD) Asthma Bipolar 1 disorder CAD (coronary artery disease) Continuous tobacco abuse COPD (chronic obstructive pulmonary disease) Depression DVT (deep venous thrombosis) Esophageal dilatation X4 most recent was performed at [facility] in [place] GERD (gastroesophageal reflux disease) Hyperlipidemia Infection of left knee Obesity Obstructive sleep apnea on CPAP (09/25/20) Pulmonary embolism TIA (transient ischemic attack) Surgical History Surgical History H/O left wrist surgery H/O right wrist surgery History of arthroscopic surgery of shoulder (~05/2020) History of esophagogastroduodenoscopy (EGD) (~2019) History of left knee replacement Initial left knee replacement in 2018 he had subsequent infection of the knee replacement and had to have repeat knee replacement in 2020 History of partial thyroidectomy (10/2014) Left thyroidectomy due to multinodular goiter History of repair of anterior cruciate ligament of right knee History of tonsillectomy Status post open reduction with internal fixation of fracture Left ankle Family History Family History Mother Lung cancer Father Heart attack Sibling Patient's brother is in good health Other Family history of malignant neoplasm Social History Social History Social History: He is and lives with a couple of friends. He had 1 daughter who of a fentanyl overdose in 2019. He has smoked up to a pack of cigarettes per day since he was 14 years old. He is currently smoking about 5-6 cigarettes per day. He used to drink alcohol heavily and was drinking up to 3/5 of hard liquor a day on and off for 20 years. He quit drinking alcohol in 2019. He us
[2021-01-29] VITALS (11 sets, daily range): BP systolic 108–149; BP diastolic 56–76; PULSE 62–88; RESP 12–18; TEMP 36.1–36.3; O2SAT 94–100
--- NOTE | 2021-01-29 07:17 | WPDHPUPDATE1 ---
History and Physical Update Update Date/Time: 01/29/21 07:17 History and Physical has been reviewed, including an updated exam of the patient. There are NO changes in the patient's condition. Risks, benefits, and alternatives have been discussed and questions answered. Patient agrees to proceed with procedure.
[2021-01-29] MEDS: LACTATED RINGERS 1,000 ML 30 ML IV CONT ×2 (07:50→10:18)
[2021-01-29] MEDS: KETOROLAC 15 MG/ML VIAL (*BKC) IV PUSH (07:55)
[2021-01-29] MEDS: ACETAMINOPHEN 500 MG TABLET 1000 MG PO (07:55)
[2021-01-29] MEDS: ceFAZolin 2 GM/D5W 50 ML 2 GM/50 ML BAG IVPB (09:33)
--- NOTE | 2021-01-29 10:17 | W.PM.PROC2 ---
Procedure Note - Detailed Date of Procedure 01/29/21 Pre-op Diagnosis right lateral elbow epicondylitis Post-op Diagnosis same Procedure Performed Debridement extensor carpi radialis brevis brevis lateral epicondyle Surgeon Alex Jha MD Patient brought to operating room 7. A general anesthetic was administered placed on the operating sterilely prepped and draped longitudinal incision made region dissection.-is flat and extensor carpi radialis longus identified and elevated extensor carpi radialis brevis was I then proceeded to detached insertion on the epicondyle the radial condyle and some extent to allow this seemed to give a nice debridement and nice closure the skin was then closed with 2-0 Vicryl and palmira sterile dressing applied patient tolerated procedure well placed and this dressing Postop diagnosis lateral epicondylitis right elbow Blood loss 15 cubic centimeters Description of Procedure Debridement extensor carpi radialis brevis and lateral epicondyle region
[2021-01-29] MEDS: fentaNYL CITRATE INJ (*CRX) 100 MCG/2 ML VIAL 25 MCG IV PUSH ×6 (10:35→11:25)
[2021-01-29] MEDS: oxyCODONE HCL (*CRX) 5 MG TAB IR PO (11:51)
== END 2021-01-29 12:42 | disposition home or self-care (01) ==
PROVIDERS: PCP Internal Medicine; Visit Provider Orthopaedic Surgery
PROC: (CPT 24110; principal; 2021-01-29 09:30)
DX: M77.11 Lateral epicondylitis, right elbow (principal); I25.10 Atherosclerotic heart disease of native coronary artery without angina pectoris; J44.9 Chronic obstructive pulmonary disease, unspecified; E78.5 Hyperlipidemia, unspecified; K21.9 Gastro-esophageal reflux disease without esophagitis; G47.33 Obstructive sleep apnea (adult) (pediatric); F31.9 Bipolar disorder, unspecified; Z86.73 Personal history of transient ischemic attack (TIA), and cerebral infarction without residual deficits; Z79.51 Long term (current) use of inhaled steroids; Z86.718 Personal history of other venous thrombosis and embolism; Z86.711 Personal history of pulmonary embolism; F17.210 Nicotine dependence, cigarettes, uncomplicated; F12.90 Cannabis use, unspecified, uncomplicated; E66.9 Obesity, unspecified; Z68.32 Body mass index [BMI] 32.0-32.9, adult
CPT/HCPCS: 24359; A9270; J0690; J1100; J1885; J2250; J2405; J2704; J3010; J7120

== ENCOUNTER 2021-10-03 13:01 | Outpatient (CLI) | payer OTHER, SELFPAY ==
--- NOTE | 2021-10-03 | ECG_ITS ---
Measurements Intervals [place] Rate: 70 P: 54 [place]: 174 QRS: 7 QRSD: 113 T: 64 QT: 389 QTc: 422 Interpretive Statements SINUS RHYTHM NONSPECIFIC T-WAVE ABNORMALITY COMPARED TO ECG 01/26/2021 14:08:39 NO SIGNIFICANT DIFFERENCE Electronically Signed On 10-03-2021 15:29:54 CDT by Wojciech York M.D.
[2021-10-03 14:06] LABS: Basophils Absolute Auto 0.2 K/mm3 (0.0-0.1); Basophils Percent Auto 1.4 % (0.2-1.2); Eosinophils Absolute Auto 0.4 K/mm3 (0-0.3); Eosinophils Percent Auto 3.6 % (0-4.4); Hematocrit 45.7 % (42.0-52.0); Hemoglobin 15.4 g/dL (14.0-18.0); Immature Granulocyte Absolute 0.07 K/mm3 (0.00-0.031); Immature Granulocyte Percent A 0.6 % (0-0.5); Lymphocytes Absolute Auto 2.91 K/mm3 (0.9-3.2); Lymphocytes Percent Auto 26.3 % (18.3-44.2); Mean Corpuscular HGB Conc 33.7 g/dl (32-36); Mean Corpuscular Hemoglobin 29.8 pg (26-34); Mean Corpuscular Volume 88.6 fl (80-100); Mean Platelet Volume 9.8 fl (7.4-10.4); Monocytes Absolute Auto 0.8 K/mm3 (0.1-0.6); Monocytes Percent Auto 7.4 % (2.6-8.5); Neutrophils Absolute Auto 6.7 K/mm3 (1.3-6.7); Neutrophils Percent Auto 60.7 % (45.5-73.1); Platelet Count Result 293 k/mm3 (150-375); Red Blood Count 5.16 M/mm3 (4.6-6.20); Red Cell Distribution Width 13.8 % (11.5-14.5); White Blood Count 11.1 K/mm3 (4.5-10.0)
[2021-10-03 14:15] LABS: Anion Gap 6 mmol/L (8-16); Blood Urea Nitrogen 23 mg/dL (9-20); Calcium 8.6 mg/dL (8.4-10.2); Carbon Dioxide 26 mmol/L (22-30); Chloride 105 mmol/L (98-107); Estimated Glomerular Filt Rate > 60; Glucose 101 mg/dL (65-110); Potassium 4.5 mmol/L (3.4-5.0); Sodium 137 mmol/L (137-145)
== END 2021-10-03 13:02 | disposition home or self-care (01) ==
PROVIDERS: PCP Internal Medicine; Visit Provider Internal Medicine
DX: J45.909 Unspecified asthma, uncomplicated (principal); I10 Essential (primary) hypertension; I38 Endocarditis, valve unspecified; R94.31 Abnormal electrocardiogram [ECG] [EKG]
CPT/HCPCS: 36415; 80048; 85025; 93005

== ENCOUNTER 2021-10-29 13:23 | Outpatient (CLI) | payer OTHER, SELFPAY ==
--- NOTE | 2021-10-29 | ECHO_ITS ---
Patient Info Name: Patrick Munson Age: 56 years : 1965 Gender: Male Ht: 70 in Wt: 216 lbs BSA: 2.23 m2 HR: 78 bpm BP: 130 / 70 mmHg Technical Quality: Fair Exam Date: 10/29/2021 2:12 PM Exam Location: [facility] Patient Status: Outpatient Admit Date: 10/29/2021 Staff Ordering Physician: Gerald Abel MD Plastic Panel Installer: Ritu Simmons RDCS Attending Provider: Gerald Abel MD Referring Physician: Colten MEYER; Exam Type: CA echo doppler color flow Study Info Indications - DIASTOLIC MURMUR Complete two-dimensional, color flow and Doppler transthoracic echocardiogram is performed. Summary 1. Complete two-dimensional, color flow and Doppler transthoracic echocardiogram is performed. 2. Left ventricular chamber dimension is moderately enlarged. 3. Left ventricular systolic function is normal, estimated at 55-60%. 4. The left ventricular diastolic function is grade I diastolic dysfunction. 5. E/e' 6 is not elevated. 6. Left atrial chamber dimension is mildly enlarged. 7. There is mild aortic valve sclerosis. 8. There is severe aortic valve regurgitation, eccentric jet. 9. There is trace mitral valve regurgitation. 10. There is trace tricuspid valve regurgitation. 11. No pulmonary hypertension, estimated pulmonary arterial systolic pressure is 28 mmHg. Left Ventricle E/e' 6 is not elevated. Left ventricular chamber dimension is moderately enlarged. Left ventricular systolic function is normal, estimated at 55-60%. The left ventricular diastolic function is grade I diastolic dysfunction. Right Ventricle Right ventricular chamber dimension is normal. Right ventricular systolic function is normal. Left Atria Left atrial chamber dimension is mildly enlarged. Right Atria Right atrial chamber dimension is normal. Aortic Valve The aortic valve is trileaflet. There is mild aortic valve sclerosis. There is no aortic valve stenosis. There is severe aortic valve regurgitation, eccentric jet. Pulmonic Valve There is no pulmonic regurgitation. Mitral Valve There is no mitral valve stenosis. There is trace mitral valve regurgitation. Tricuspid Valve There is trace tricuspid valve regurgitation. No pulmonary hypertension, estimated pulmonary arterial systolic pressure is 28 mmHg. Pericardium/Pleural There is no pericardial effusion. Inferior Vena Cava Normal inferior vena cava with >50% collapse upon inspiration consistent with normal right atrial pressure, 5 mmHg. Aorta The aortic root size at the sinus of Valsalva is normal. Left Ventricular Outflow Tract Name Value Normal LVOT 2D LVOT Diameter 2.0 cm LVOT Doppler LVOT Peak Gradient 8 mmHg LVOT Mean Gradient 5 mmHg LVOT VTI 31 cm LVOT VTI/AV VTI Ratio 0.6 LVOT Stroke Volume 97 ml LVOT CO 20.9 l/min LVOT CI 9.4 l/min/m2 Pulmonic Valve
== END 2021-10-29 13:24 | disposition home or self-care (01) ==
LOC: ANHCARD 13:25
PROVIDERS: PCP Internal Medicine; Visit Provider Internal Medicine
DX: J45.909 Unspecified asthma, uncomplicated (principal); I38 Endocarditis, valve unspecified; I35.1 Nonrheumatic aortic (valve) insufficiency; I34.0 Nonrheumatic mitral (valve) insufficiency; I10 Essential (primary) hypertension
CPT/HCPCS: 93306

== ENCOUNTER 2022-12-08 13:12 | Outpatient (CLI) | payer OTHER, SELFPAY ==
--- NOTE | 2022-12-09 06:51 | WPDPFTINT ---
PFT Procedure Performed PFT Procedure Performed Plethysmography (Lung Vol) Diffusing Cap (DLCO) Flow Vol Loop Spirometry w/o Bronchodil PFT Interpretation This is a pulmonary function test with spirometry, plethysmography and diffusing capacity. The test was performed and results interpreted in accordance with the 2019 and 2005 ATS/ERS Task Force guidelines respectively using the Global Lung Function Initiative-2012 reference equations. Patient demonstrated good effort and cooperation. Reproducibility criteria were met. The quality of the spirometry maneuver was Grade A. Findings: Spirometry: The contour the inspiratory and expiratory flow tracing are normal. The FVC is 3.21 L, 68% predicted. The FEV1 is 2.50 L, 68% predicted. The FEV1: FVC ratio 78%. Plethysmography: The total lung capacity is 5.63 L, 80% predicted. The functional residual capacity is 3.02 L, 83% predicted. The residual volume is 2.36 L, 107% predicted. Diffusing capacity: The diffusing capacity unadjusted for hemoglobin and carboxyhemoglobin is 15.2, 53% predicted. The diffusing capacity adjusted for alveolar volume is 3.68, 85% predicted. Impression: The spirometry is normal without evidence of an obstructive abnormality. The lung volumes are normal without evidence of and restrictive abnormality. The FVC and FEV1 are moderately decreased without an obstructive or restrictive abnormality. This is an abnormal but nonspecific finding. The diffusing capacity unadjusted for hemoglobin and carboxyhemoglobin is moderately decreased and normalizes when adjusted for alveolar volume. There are no prior studies for comparison
== END 2022-12-08 13:13 | disposition home or self-care (01) ==
LOC: ANHPFT 13:13
PROVIDERS: PCP Internal Medicine; Visit Provider Internal Medicine
DX: J45.909 Unspecified asthma, uncomplicated (principal)
CPT/HCPCS: 94375; 94726; 94729